=== PATIENT | female | born 1935 | race Caucasian/White ===

== ENCOUNTER → 2019-12-26 | Outpatient (CLI) | payer MEDICARE, OTHER | END | disposition home or self-care (01) | LOC: SHCH 13:37 | PROVIDERS: ATTEND Internal Medicine Cardiovascular Disease | DX: R60.9 Edema, unspecified (principal) | CPT/HCPCS: 93970 ==

== ENCOUNTER → 2019-12-29 | Outpatient (CLI) | payer MEDICARE, OTHER ==
[~2019-12-29] MED LIST: REGADENOSON 0.4 MG/5 ML PF SYG IVP SCH
== END | disposition home or self-care (01) ==
LOC: SHCH 08:09
PROVIDERS: ATTEND Internal Medicine Cardiovascular Disease
DX: I10 Essential (primary) hypertension (principal); I21.09 ST elevation (STEMI) myocardial infarction involving other coronary artery of anterior wall
CPT/HCPCS: 78452; 93017; 96374; A9500 ×2; J2785

== ENCOUNTER 2020-01-16 11:00 | Inpatient (IN) | payer MEDICARE ==
[~2020-01-16] VITALS: Ht 167.6 cm; Wt 78.7 kg
[2020-01-16 11:13] LABS: BASOPHILS % (AUTO) 0.7 % (0.0-5.0); HEMATOCRIT 36.4 % (36-48); MEAN CORPUSCULAR HEMOGLOBIN 24.7 pg (27.0-33.0); MEAN CORPUSCULAR VOLUME 79.6 fL (79-99); MONOCYTES % (AUTO) 10.1 % (3.0-13.0); NEUTROPHILS % (AUTO) 50.8 % (40.0-77.0); PLATELET COUNT (AUTO) 196 K/uL (130-400); RED BLOOD CELL COUNT(AUTO) 4.57 MIL/uL (4.00-5.50); RED CELL DISTRIBUTION WIDTH 17.2 % (11.0-15.5); WHITE BLOOD COUNT (AUTO) 5.6 K/uL (4.8-10.8)
[2020-01-16] MEDS ORDERED: FUROSEMIDE 10 MG/ML 4ML VIAL ONE ×2 (11:14→21:00)
[2020-01-16 11:25] LABS: ALBUMIN 3.2 g/dL (3.5-5.0); BILIRUBIN,TOTAL 1.7 mg/dL (0.2-1.0); CREATININE 1.2 mg/dL (0.5-1.5); TOTAL PROTEIN, SERUM 6.6 g/dL (6.0-8.3)
[2020-01-16 11:41] LABS: B-TYPE NATRIURETIC PEPTIDE 681 pg/mL (0-100)
[2020-01-16] MEDS ORDERED: METOPROLOL TARTRATE 25 MG TAB ONE (15:50)
[2020-01-16] MEDS ORDERED: POTASSIUM CHLORIDE 20 MEQ ERTAB PO ONE ×2 (21:00→23:28)
[2020-01-17] MEDS ORDERED: POTASSIUM CHLORIDE 20 MEQ ERTAB PO ONE ×2 (00:53→03:11)
[2020-01-17] MEDS ORDERED: METOPROLOL TARTRATE 50 MG TAB ONE ×2 (03:57→17:40)
[2020-01-17] MEDS ORDERED: FUROSEMIDE 10 MG/ML 4ML VIAL ONE (05:19)
--- NOTE | 2020-01-17 14:42 | NUR ---
INITIAL SW met with patient and son. Patient lives with son, Kirill Everett, . No home services. DME: [employer], [employer]. Patient is able to complete ADL's independently and drives. PCP is Dr. Stacy Snow. Pharmacy is [facility] located in [place] or [facility] located in [place]. DCP is home. Addendum: 01/17/20 at 1445 by ELVIA MOCK SS Amended: Links added.
[2020-01-17 22:20] VITALS: BP 162/89
[2020-01-17 23:36] VITALS: BP 157/94
[2020-01-18 03:47] VITALS: BP 146/93
--- NOTE | 2020-01-18 03:48 | NUR ---
admission database unable to complete admission hx due to patient being oriented to person
[2020-01-18] MEDS ORDERED: POTASSIUM CHLORIDE 10% ELIXIR 20 MEQ/15 ML UDCUP PO PRN (05:15)
[2020-01-18] MEDS ORDERED: POTASSIUM CHLORIDE 20MEQ/100ML 100 ML IV PRN (05:15)
[2020-01-18] MEDS ORDERED: DILTIAZEM HCL 125 MG/25 ML 125 MG in SODIUM CHLORIDE 0.9% 100 ML IV SCH (05:15)
[2020-01-18] MEDS ORDERED: POTASSIUM CHLORIDE 20 MEQ ERTAB PO PRN (05:15)
[2020-01-18] MEDS ORDERED: LIDOCAINE HCL-MPF 1% 2ML VIAL IV PRN (05:15)
[2020-01-18 07:55] LABS: CREATININE 1.2 mg/dL (0.5-1.5)
[2020-01-18 07:56] VITALS: BP 154/82
[2020-01-18 08:14] LABS: POTASSIUM 2.9 mmol/L (3.5-5.1)
[2020-01-18] MEDS: FUROSEMIDE 40 MG TABLET PO SCH (10:32)
[2020-01-18] MEDS: METOPROLOL TARTRATE 50 MG TAB PO SCH ×2 (10:32→20:23)
[2020-01-18 11:50] VITALS: BP 143/53
--- NOTE | 2020-01-18 12:01 | NUR ---
PER DR. LARA, NO LHC, JUST MED MANAGEMENT AT THIS POINT.
[2020-01-18 15:47] VITALS: BP 166/67
[2020-01-18 20:21] LABS: MAGNESIUM 1.6 mg/dL (1.80-2.40); POTASSIUM 3.5 mmol/L (3.5-5.1)
[2020-01-18 20:22] VITALS: BP_SYST 131; BP_SYST 143; BP_DIAS 57; BP_DIAS 89
[2020-01-18 23:55] VITALS: BP 128/78
[2020-01-19 03:51] VITALS: BP 141/96
[2020-01-19 04:13] LABS: BASOPHILS % (AUTO) 0.4 % (0.0-5.0); EOSINOPHILS % (AUTO) 2.3 % (0.0-8.0); LYMPHOCYTES % (AUTO) 36.6 % (21.0-51.0); MEAN CORPUSCULAR HEMOGLOBIN 24.3 pg (27.0-33.0); MEAN CORPUSCULAR HGB CONC 30.3 g/dL (32.0-36.0); MEAN CORPUSCULAR VOLUME 80.2 fL (79-99); MONOCYTES % (AUTO) 9.8 % (3.0-13.0); NEUTROPHILS % (AUTO) 50.6 % (40.0-77.0); PLATELET COUNT (AUTO) 227 K/uL (130-400); RED BLOOD CELL COUNT(AUTO) 4.74 MIL/uL (4.00-5.50); RED CELL DISTRIBUTION WIDTH 17.4 % (11.0-15.5); WHITE BLOOD COUNT (AUTO) 7.5 K/uL (4.8-10.8)
[2020-01-19 04:34] LABS: ALBUMIN 3.1 g/dL (3.5-5.0); BILIRUBIN,TOTAL 1.3 mg/dL (0.2-1.0); CREATININE 1.5 mg/dL (0.5-1.5); POTASSIUM 3.5 mmol/L (3.5-5.1); TOTAL PROTEIN, SERUM 6.6 g/dL (6.0-8.3)
[2020-01-19] MEDS ORDERED: RIVA15TA PO (04:55)
[2020-01-19] MEDS ORDERED: FURO20TA4 PO (04:55)
[2020-01-19] MEDS ORDERED: CARV25TA PO (04:55)
[2020-01-19] MEDS ORDERED: TRAM50TA4 PO (04:55)
--- NOTE | 2020-01-19 07:30 | NUR ---
DAILY ASSESSMENT PT DENIES CHEST PAIN OR DISCOMFORT, NO SOB OR LABORED RESPIRATIONS. ORIENTED TO PERSON AND YEAR, REORIENTED TO PLACE DATE AND TIME. FALL PRECAUTION, BED ALARM ON, CALL LIGHT WITHIN REACH
[2020-01-19 07:55] VITALS: BP 155/89
[2020-01-19] MEDS: FUROSEMIDE 40 MG TABLET PO SCH (09:11)
[2020-01-19] MEDS: METOPROLOL TARTRATE 50 MG TAB PO SCH (09:11)
[2020-01-19 11:36] VITALS: BP 134/87
[2020-01-19 15:32] VITALS: BP 155/91
--- NOTE | 2020-01-19 16:28 | NUR ---
chf core measure as per Louis ROJAS for Dr Corona, states no vinny/arb on discharge secondary to renal insufficiency.
--- NOTE | 2020-01-19 16:54 | NUR ---
Gave patient and son discharge instructions and education. Son stated he understood discharge instructions and education. Removed patient's peripheral IV without complication.
== END 2020-01-19 17:13 | disposition home or self-care (01) | DRG 292 ==
LOC: EDH 11:00 → EDHIP 12:21 → 2AH 01-17 20:08
PROVIDERS: ADMIT Internal Medicine Nephrology; ATTEND Internal Medicine Nephrology
DX: I11.0 Hypertensive heart disease with heart failure (principal); I48.20 Chronic atrial fibrillation, unspecified; D64.9 Anemia, unspecified; E11.9 Type 2 diabetes mellitus without complications; I25.10 Atherosclerotic heart disease of native coronary artery without angina pectoris; I50.23 Acute on chronic systolic (congestive) heart failure; F03.90 Unspecified dementia, unspecified severity, without behavioral disturbance, psychotic disturbance, mood disturbance, and anxiety; E87.6 Hypokalemia; E78.5 Hyperlipidemia, unspecified; M54.12 Radiculopathy, cervical region; M19.90 Unspecified osteoarthritis, unspecified site; K57.90 Diverticulosis of intestine, part unspecified, without perforation or abscess without bleeding; E04.1 Nontoxic single thyroid nodule; Z90.11 Acquired absence of right breast and nipple; Z79.01 Long term (current) use of anticoagulants; Z85.820 Personal history of malignant melanoma of skin; Z85.3 Personal history of malignant neoplasm of breast; Z88.1 Allergy status to other antibiotic agents
CPT/HCPCS: 36415; 71045; 71046; 80048; 80053; 83735; 83880; 84132; 85025; 93005; G0378; J1940; J3480; J3490

== ENCOUNTER → 2021-01-10 | Outpatient (CLI) | payer MEDICARE ==
[~2021-01-10] MED LIST changes: +CARV25TA PO; +FURO20TA4 PO; -REGADENOSON 0.4 MG/5 ML PF SYG IVP SCH; +RIVA15TA PO; +TRAM50TA4 PO
== END | disposition home or self-care (01) ==
LOC: SHCH 09:52
PROVIDERS: ATTEND Internal Medicine Cardiovascular Disease
DX: I07.1 Rheumatic tricuspid insufficiency (principal); I25.10 Atherosclerotic heart disease of native coronary artery without angina pectoris; I10 Essential (primary) hypertension; E78.5 Hyperlipidemia, unspecified
CPT/HCPCS: 93306; 93356

== ENCOUNTER 2021-09-05 12:07 | Inpatient (IN) | payer MEDICARE, OTHER ==
[~2021-09-05] VITALS: Ht 53.3 cm; Wt 81.5 kg
[2021-09-05 12:40] LABS: BASOPHILS % (AUTO) 0.6 % (0.0-5.0); EOSINOPHILS % (AUTO) 3.5 % (0.0-8.0); HEMATOCRIT 37.8 % (36-48); LYMPHOCYTES % (AUTO) 23.7 % (21.0-51.0); MEAN CORPUSCULAR HEMOGLOBIN 26.3 pg (27.0-33.0); MEAN CORPUSCULAR HGB CONC 30.4 g/dL (32.0-36.0); MEAN CORPUSCULAR VOLUME 86.5 fL (79-99); NEUTROPHILS % (AUTO) 60.9 % (40.0-77.0); PLATELET COUNT (AUTO) 198 K/uL (130-400); RED BLOOD CELL COUNT(AUTO) 4.37 MIL/uL (4.00-5.50); RED CELL DISTRIBUTION WIDTH 17.6 % (11.0-15.5); WHITE BLOOD COUNT (AUTO) 6.9 K/uL (4.8-10.8)
[2021-09-05 13:06] LABS: B-TYPE NATRIURETIC PEPTIDE 1010 pg/mL (0-100)
[2021-09-05 13:11] LABS: INR 1.33 (0.85-1.15); PROTHROMBIN TIME 14.1 SEC (9.6-11.6)
[2021-09-05 13:12] LABS: CREATININE 0.9 mg/dL (0.5-1.5); POTASSIUM 3.5 mmol/L (3.5-5.1)
[2021-09-05 13:13] LABS: PARTIAL THROMBOPLASTIN TIME 28.6 SEC (26.3-35.5)
[2021-09-05 13:17] LABS: ALBUMIN 3.4 g/dL (3.5-5.0); BILIRUBIN,TOTAL 1.7 mg/dL (0.2-1.0); MAGNESIUM 1.8 mg/dL (1.80-2.40)
[2021-09-05] MEDS ORDERED: LABETALOL 20MG SYG IV ONE (14:00)
[2021-09-05] MEDS ORDERED: FUROSEMIDE 40MG VIAL IV ONE (14:00)
[2021-09-05] MEDS ORDERED: LEVO50CA4 PO (14:07)
[2021-09-05] MEDS ORDERED: RIVA15TA PO (14:07)
[2021-09-05] MEDS ORDERED: CARV12.511 PO (14:07)
[2021-09-05 16:00] VITALS: BP 156/96
[2021-09-05] MEDS: ISOSORBIDE MONO 30MG SR TAB PO SCH ×2 (17:30→20:04)
[2021-09-05] MEDS ORDERED: CARV25TA PO (18:03)
[2021-09-05] MEDS ORDERED: FURO40TA5 PO (18:03)
[2021-09-05 18:06] VITALS: BP_SYST 154; BP_SYST 156; BP_SYST 163; BP_DIAS 83; BP_DIAS 96
[2021-09-05 19:55] VITALS: BP 148/85
[2021-09-05] MEDS: POTASSIUM CHLORIDE 10MEQ SR TAB PO SCH (20:08)
[2021-09-05] MEDS: FUROSEMIDE 20MG VIAL IV SCH (20:08)
[2021-09-05] MEDS: ATORVASTATIN 10 MG TABLET PO SCH (20:08)
[2021-09-05] MEDS ORDERED: CARVEDILOL 12.5 MG TABLET PO SCH (21:00)
[2021-09-05 22:48] VITALS: BP 147/80
[2021-09-06 03:18] VITALS: BP 132/82
[2021-09-06 06:46] LABS: BASOPHILS % (AUTO) 0.4 % (0.0-5.0); EOSINOPHILS % (AUTO) 4.5 % (0.0-8.0); HEMATOCRIT 36.1 % (36-48); LYMPHOCYTES % (AUTO) 19.1 % (21.0-51.0); MEAN CORPUSCULAR HEMOGLOBIN 26.2 pg (27.0-33.0); MEAN CORPUSCULAR VOLUME 84.5 fL (79-99); NEUTROPHILS % (AUTO) 62.9 % (40.0-77.0); PLATELET COUNT (AUTO) 177 K/uL (130-400); RED BLOOD CELL COUNT(AUTO) 4.27 MIL/uL (4.00-5.50); RED CELL DISTRIBUTION WIDTH 17.6 % (11.0-15.5); WHITE BLOOD COUNT (AUTO) 7.1 K/uL (4.8-10.8)
[2021-09-06 07:05] LABS: B-TYPE NATRIURETIC PEPTIDE 635 pg/mL (0-100)
[2021-09-06 07:10] VITALS: BP 136/87
[2021-09-06 07:18] LABS: MAGNESIUM 1.7 mg/dL (1.80-2.40); THYROID STIMULATING HORMONE 0.25 uIU/mL (0.36-3.74)
[2021-09-06 07:20] LABS: POTASSIUM 2.8 mmol/L (3.5-5.1)
[2021-09-06] MEDS ORDERED: KCL 20 MEQ ERTAB PO ONE (07:40)
[2021-09-06] MEDS ORDERED: POTASSIUM CHLORIDE 20MEQ/100ML 100 ML IV ONE (07:40)
[2021-09-06] MEDS ORDERED: LIDOCAINE HCL-MPF 1% 2ML VIAL IV PRN (08:00)
[2021-09-06] MEDS ORDERED: POTASSIUM CHLORIDE 20MEQ/100ML 100 ML IV PRN (08:00)
[2021-09-06] MEDS ORDERED: POTASSIUM CHLORIDE 10% ELIXIR 20 MEQ/15 ML UDCUP PO PRN (08:00)
[2021-09-06] MEDS ORDERED: Isosorbide Mono 30MG Sr Tab PO (08:02)
[2021-09-06] MEDS ORDERED: POTA-10 PO (08:02)
[2021-09-06] MEDS ORDERED: ATOR10 PO (08:02)
[2021-09-06] MEDS: POTASSIUM CHLORIDE 10MEQ SR TAB PO SCH (09:00)
[2021-09-06] MEDS: ISOSORBIDE MONO 30MG SR TAB PO SCH (10:40)
[2021-09-06] MEDS: LEVOTHYROXINE 50 MCG TABLET PO SCH (10:40)
[2021-09-06] MEDS: RIVAROXABAN 15 MG TABLET PO SCH (10:40)
[2021-09-06] MEDS: FUROSEMIDE 20MG VIAL IV SCH (10:42)
[2021-09-06] MEDS: KCL 20 MEQ ERTAB PO PRN ×5 (10:44→23:16)
[2021-09-06] MEDS: CARVEDILOL 25 MG TABLET PO SCH ×2 (10:46→20:28)
[2021-09-06 10:50] VITALS: BP 140/82
[2021-09-06] MEDS: MAGNESIUM 2GM PREMIX 50ML 50 ML IV PRN (11:39)
[2021-09-06 15:12] LABS: POTASSIUM 3.4 mmol/L (3.5-5.1)
[2021-09-06 16:19] VITALS: BP 118/66
[2021-09-06 19:07] VITALS: BP 123/70
[2021-09-06] MEDS: ATORVASTATIN 10 MG TABLET PO SCH (20:28)
[2021-09-06 23:43] VITALS: BP 136/73
[2021-09-07 03:29] VITALS: BP 125/83
[2021-09-07 04:53] LABS: MAGNESIUM 1.9 mg/dL (1.80-2.40); POTASSIUM 4.2 mmol/L (3.5-5.1)
[2021-09-07] MEDS: MAGNESIUM 2GM PREMIX 50ML 50 ML IV PRN (05:50)
[2021-09-07 08:03] VITALS: BP 144/88
[2021-09-07] MEDS: CARVEDILOL 25 MG TABLET PO SCH (09:07)
[2021-09-07] MEDS: ISOSORBIDE MONO 30MG SR TAB PO SCH (09:07)
[2021-09-07] MEDS: LEVOTHYROXINE 50 MCG TABLET PO SCH (09:07)
[2021-09-07] MEDS: RIVAROXABAN 15 MG TABLET PO SCH (09:07)
[2021-09-07 11:15] VITALS: BP 131/92
[2021-09-07 15:30] VITALS: BP 132/72
== END 2021-09-07 16:13 | disposition home or self-care (01) | DRG 291 ==
LOC: EDH 12:07 → EDHIP 14:00 → 4BH 16:13
PROVIDERS: ADMIT Internal Medicine Infectious Disease; ATTEND Internal Medicine Infectious Disease
DX: I13.0 Hypertensive heart and chronic kidney disease with heart failure and stage 1 through stage 4 chronic kidney disease, or unspecified chronic kidney disease (principal); I50.43 Acute on chronic combined systolic (congestive) and diastolic (congestive) heart failure; I48.20 Chronic atrial fibrillation, unspecified; I16.0 Hypertensive urgency; E78.5 Hyperlipidemia, unspecified; J44.9 Chronic obstructive pulmonary disease, unspecified; N18.30 Chronic kidney disease, stage 3 unspecified; Z20.822 Contact with and (suspected) exposure to COVID-19; I25.10 Atherosclerotic heart disease of native coronary artery without angina pectoris; M54.12 Radiculopathy, cervical region; E03.9 Hypothyroidism, unspecified; F03.90 Unspecified dementia, unspecified severity, without behavioral disturbance, psychotic disturbance, mood disturbance, and anxiety; Z79.01 Long term (current) use of anticoagulants; Z79.899 Other long term (current) drug therapy; Z87.891 Personal history of nicotine dependence; Z85.3 Personal history of malignant neoplasm of breast; Z85.820 Personal history of malignant melanoma of skin; Z90.11 Acquired absence of right breast and nipple
CPT/HCPCS: 36415; 71045; 80048; 80053; 80061; 82550; 83735; 83874; 83880; 84443; 84484; 85025; 85378; 85610; 85730; 87635; 93005; G0378; J1940; J3475; J3480; J3490

== ENCOUNTER → 2021-10-06 | Outpatient (CLI) | payer MEDICARE, OTHER ==
[~2021-10-06] MED LIST changes: +ATOR10 PO; -FURO20TA4 PO; +FURO40TA5 PO; +Isosorbide Mono 30MG Sr Tab PO; +LEVO50CA4 PO; +POTA-10 PO
== END | disposition home or self-care (01) ==
LOC: SHCH 11:22
PROVIDERS: ATTEND Internal Medicine Cardiovascular Disease
DX: I36.1 Nonrheumatic tricuspid (valve) insufficiency (principal); I27.20 Pulmonary hypertension, unspecified; I48.0 Paroxysmal atrial fibrillation; I11.9 Hypertensive heart disease without heart failure; E78.5 Hyperlipidemia, unspecified; I31.3 Pericardial effusion (noninflammatory)
CPT/HCPCS: 93306; 93356

== ENCOUNTER → 2022-05-07 | Outpatient (CLI) | payer MEDICARE, OTHER | END | disposition home or self-care (01) | LOC: RAH 14:43 | PROVIDERS: ATTEND Internal Medicine Nephrology | DX: M47.812 Spondylosis without myelopathy or radiculopathy, cervical region (principal); M54.2 Cervicalgia; M43.22 Fusion of spine, cervical region; M48.02 Spinal stenosis, cervical region | CPT/HCPCS: 72125 ==

== ENCOUNTER 2024-03-02 14:15 | Emergency (ER) | payer MEDICARE ==
[~2024-03-02] VITALS: Ht 157.5 cm; Wt 72.6 kg
[~2024-03-02 14:15] MED LIST changes: -POTA-10 PO; +POTA-200 PO
[2024-03-02 14:40] VITALS: BP 151/101; PULSE 107; RESP 22; O2SAT 98
[2024-03-02 15:13] LABS: BASOPHILS # (AUTO) 0.03 K/uL (0.00-0.20); BASOPHILS % (AUTO) 0.4 % (0.0-5.0); EOSINOPHILS # (AUTO) 0.48 K/uL (0.00-0.70); EOSINOPHILS % (AUTO) 7.2 % (0.0-8.0); HEMATOCRIT 40.2 % (36-48); IMMATURE GRANULOCYTE ABSOLUTE 0.01 K/uL (0-1); LYMPHOCYTES # (AUTO) 1.6 K/uL (1.0-4.8); LYMPHOCYTES % (AUTO) 23.8 % (21.0-51.0); MEAN CORPUSCULAR HEMOGLOBIN 28.6 pg (27.0-33.0); MEAN CORPUSCULAR HGB CONC 31.3 g/dL (32.0-36.0); MEAN CORPUSCULAR VOLUME 91.4 fL (79-99); MONOCYTES # (AUTO) 0.6 K/uL (0.1-1.0); MONOCYTES % (AUTO) 9.4 % (3.0-13.0); NEUTROPHILS # (AUTO) 3.9 K/uL (1.8-7.7); NEUTROPHILS % (AUTO) 59.1 % (40.0-77.0); PLATELET COUNT (AUTO) 170 K/uL (130-400); RED CELL DISTRIBUTION WIDTH 15.3 % (11.0-15.5); WHITE BLOOD COUNT (AUTO) 6.7 K/uL (4.8-10.8)
[2024-03-02 15:18] LABS: CREATININE 0.9 mg/dL (0.5-1.0); POTASSIUM 3.8 mmol/L (3.5-5.1)
[2024-03-02 15:23] LABS: ALBUMIN 3.2 g/dL (3.5-5.0); BILIRUBIN,TOTAL 1.4 mg/dL (0.2-1.0); MAGNESIUM 1.8 mg/dL (1.80-2.40); TOTAL PROTEIN, SERUM 6.4 g/dL (6.0-8.3)
[2024-03-02] MEDS ORDERED: LEVO-70 PO (15:39)
[2024-03-02] MEDS ORDERED: ALBUHFA IH (15:39)
[2024-03-02 15:51] LABS: B-TYPE NATRIURETIC PEPTIDE 978 pg/mL (0-100)
== END 2024-03-02 15:51 | disposition home or self-care (01) ==
LOC: EDH 14:15
DX: J20.9 Acute bronchitis, unspecified (principal); I48.20 Chronic atrial fibrillation, unspecified; I10 Essential (primary) hypertension; Z88.8 Allergy status to other drugs, medicaments and biological substances; Z85.3 Personal history of malignant neoplasm of breast
CPT/HCPCS: 36415; 71045; 80053; 83735; 83880; 84484; 85025; 93005

== ENCOUNTER 2024-09-06 19:29 | Emergency (ER) | payer MEDICARE ==
[~2024-09-06] VITALS: Ht 167.6 cm; Wt 90.7 kg
[~2024-09-06 19:29] MED LIST changes: +ALBUHFA IH; +LEVO-70 PO
[2024-09-06] MEDS ORDERED: CACL 1GM SYG IVP ONE (19:30)
[2024-09-06] MEDS ORDERED: SODIUM BICARB 8.4% 50ML SYRINGE ONE (19:42)
[2024-09-06 21:05] VITALS: BP 0/0; PULSE 0; RESP 0
== END 2024-09-06 19:48 ==
LOC: EDH 19:29
DX: I46.9 Cardiac arrest, cause unspecified (principal); I48.91 Unspecified atrial fibrillation; E03.9 Hypothyroidism, unspecified; I11.0 Hypertensive heart disease with heart failure; I50.9 Heart failure, unspecified; Z79.01 Long term (current) use of anticoagulants; Z79.899 Other long term (current) drug therapy; Z85.3 Personal history of malignant neoplasm of breast
CPT/HCPCS: 99285; 92950; 36600; J7070; J0171; J3490 ×3